=== PATIENT | female | born 1950 | race Caucasian/White ===

== ENCOUNTER 2025-04-12 09:47 | Outpatient (CLI) | payer MEDICARE, OTHER, SELFPAY ==
[2025-04-12 10:25] VITALS: BP 118/87; PULSE 72; RESP 15; TEMP 36.3; O2SAT 95
[2025-04-12 10:40] VITALS: BP 134/87; PULSE 72; RESP 16; O2SAT 96
[2025-04-12] MEDS: LIDOCAINE 1% (PF) 5 ML 10 ML INJ (10:43)
[2025-04-12 10:45] VITALS: BP 137/90; PULSE 71; RESP 16; O2SAT 96
[2025-04-12 10:52] VITALS: BP 127/87; PULSE 88; RESP 17; O2SAT 95
--- NOTE | 2025-04-12 12:38 | PM.PROC.IR.1 ---
Date/Time/Diagnoses Date of procedure: 04/12/25 Time of procedure: 10:30 Pre-procedure diagnosis: Lumbosacral radiculopathy Post-procedure diagnosis: same Procedure Notes Procedure: Interlaminar epidural steroid injection L5-S1 Indications: Lumbosacral radiculopathy Physician: David Jimenez Total sedation minutes: 0 Complications: none Procedure in detail & Post-procedure care: Patient is here for the planned procedure today as noted. No significant change since the last office visit. For additional clinical scenario please see those office notes. Focused exam: Vital signs reviewed as charted on intake. Gen: Well developed. No acute distress. CV: RRR, no M/R/G Chest: Non-labored breathing, CTAB. Psych: Alert and well-oriented. Mood/Affect: normal. Patient suitable for the planned procedure today: Yes === The following procedure was performed in the office today: Lumbar Epidural Steroid Injection with fluoroscopic guidance - Interlaminar approach (98095) Levels Treated: [L5-S1] Approach: interlaminar Soft tissue: [1% lidocaine 2 mL] Test dose: [1% lidocaine 1 mL] Injectate: 0.75 mL of Depo-Medrol (80mg/mL) in 1.25 mL 1% lidocaine and 1 mL normal saline Fluoroscopy Agent: Isovue 300-M 1.5 mL Notes: 3.5 in 20 gauge Touhy needle utilized and adequate. Preprocedure pain 9/10, postprocedure pain 6/10. Procedure: After discussing the risks, benefits, and alternatives to the procedure, the patient expressed understanding and wished to proceed. The risks include but are not limited to infection, allergic reaction, nerve damage, stroke, paralysis, epidural hematoma, syncope, headache, respiratory or cardiac arrest, spinal cord injury, and scar formation. Informed consent was obtained and all patient questions were answered. The patient was brought to the procedure suite and placed in the prone position. A pre-procedural pause was conducted to verify: correct patient identity, procedure to be performed and as applicable, correct side and site, correct patient position, and any special requirements. Using a paramedian approach from the side noted above, the region overlying the target was localized under fluoroscopic visualization and the soft tissues overlying this structure were infiltrated with the anesthetic listed above. With fluoroscopic guidance, a #20 gauge Tuohy needle (unless otherwise noted) was inserted into the epidural space using a paramedian approach. The epidural space was localized utilizing intermittent multiplanar fluoroscopic guidance and loss of resistance technique. After negative aspiration, the contrast noted above was injected into the epidural space and the flow of contrast was observed, confirming epidural spread without evidence of intravascular or intrathecal spread. Multi-planar radiographs were obtained for documentation purposes. A test dose of lidocaine was injected into the above noted epidural space, and the patient was observed for 30-60 seconds. No sensory deficits were reported and normal lower extremity motor function was noted. Subsequently, the injectate as noted above was administered into the level noted above. The patient tolerated the procedure well and was discharged after an appropriate period of observation. If there are any complications, the patient was instructed to call us. The patient is to follow-up with the requesting provider in 2-3 weeks. This note was compiled using voice recognition software and therefore may contain typos. Please contact the author with any questions or concerns.
== END 2025-04-12 10:57 | disposition home or self-care (01) ==
LOC: RAD 09:49
PROVIDERS: PCP Internal Medicine; Referring Provider Internal Medicine; Visit Provider Physical Medicine & Rehabilitation
DX: M54.17 Radiculopathy, lumbosacral region (principal)
CPT/HCPCS: 62323; J1010

== ENCOUNTER → 2025-06-03 13:06 | Outpatient (CLI) | payer MEDICARE, OTHER, SELFPAY ==
--- NOTE | 2025-06-03 13:07 | DI.MRI.S_ITS ---
PROCEDURE: MR LUMBAR SPINE WO CON INDICATIONS: lumbosacral radic LLE TECHNIQUE: Noncontrast sagittal T1 spin echo and T2 fast echo, sagittal STIR, and T2 fast spin echo through the lumbar spine. In cases with scoliosis, additional coronal T2 fast spin echo may be performed. COMPARISON: [facility], MR, MR LUMBAR SPINE WITHOUT CONTRAST, 07/09/2022, 10:40. [facility] [place], CR, XR LUMBAR SPINE 2 OR 3 VIEWS, 07/27/2022, 10:58. FINDINGS: Image quality: Excellent. Alignment and Curvature: 3 mm grade 1 anterolisthesis of L2 on L3. Bone Marrow: Marrow is of normal overall signal. Mild multifocal degenerative endplate changes. No acute vertebral body compression fractures. Spinal Cord: Conus medullaris terminates at the L1 level. Visualized cord demonstrates normal signal and size. Paraspinous Soft Tissues: No paravertebral masses. Grade 2 fatty infiltration of the paraspinous musculature. Bilateral parapelvic renal cysts. T12-L1: Disc desiccation and mild circumferential disc bulging without significant spinal canal stenosis or neural foraminal narrowing. L1-L2: Disc desiccation and loss of disc space height with circumferential disc bulging, mild facet hypertrophy, buckling of the ligamentum flavum. Findings result in mild narrowing of the spinal canal and mild bilateral neural foraminal narrowing. Findings do not appear significantly changed when compared to the MRI from 07/09/2022. L2-L3: Disc desiccation and loss of disc space height with posterior disc- osteophyte complex as well as mild bilateral facet hypertrophy and buckling of the ligamentum flavum. Findings result in [id number] narrowing of the spinal canal with crowding of the lateral recesses as well as moderate bilateral neural foraminal narrowing. Findings appear improved when compared to the MRI from 07/09/2022, primarily due to decreased epidural fat. L3-L4: Disc desiccation and circumferential disc bulging with small left paracentral disc protrusion as well as moderate bilateral facet hypertrophy and buckling of the ligamentum flavum. Findings result in severe narrowing of the spinal canal, effacement of the lateral recesses that is greater on the left than on the right, and [id number] bilateral neural foraminal narrowing. Findings appear progressed when compared to the prior MRI. L4-L5: Disc desiccation and circumferential disc bulging as well as moderate to severe bilateral facet hypertrophy and buckling of the ligamentum flavum. Findings result in moderate to severe narrowing of the spinal canal with effacement of the lateral recesses and moderate bilateral neural foraminal narrowing. Findings have minimally progressed. L5-S1: Disc desiccation and mild circumferential disc bulging as well as mild bilateral facet hypertrophy. Findings result in [id number]-[id number]-smiobclf narrowing of the neural foramina without significant spinal canal stenosis. Findings have not significantly changed. IMPRESSION: 1. At L3-4, progressive degenerative changes result in severe narrowing of the spinal canal, effacement of the lateral recesses, and [id number] bilateral neural foraminal narrowing. 2. At L4-5, degenerative changes result in moderate to severe spinal canal narrowing, effacement of the lateral recesses, and moderate bilateral neural foraminal narrowing. 3. At L2-3, the degree of spinal canal stenosis has improved when compared to the prior MRI from 07/09/2022, predominantly due to decreased epidural fat. 4. Additional multilevel degenerative disc disease and facet hypertrophy as described in the body of the report, overall mildly progressed when compared to the prior MRI. Approved by: Fox Glaser M.D. on 06/04/2025 at 14:59
== END ==
LOC: MRI 13:07
PROVIDERS: PCP Internal Medicine; Referring Provider Internal Medicine; Visit Provider Physical Medicine & Rehabilitation
DX: M47.27 Other spondylosis with radiculopathy, lumbosacral region (principal); M47.26 Other spondylosis with radiculopathy, lumbar region; M51.16 Intervertebral disc disorders with radiculopathy, lumbar region; M51.17 Intervertebral disc disorders with radiculopathy, lumbosacral region; M48.061 Spinal stenosis, lumbar region without neurogenic claudication; M48.07 Spinal stenosis, lumbosacral region; N28.1 Cyst of kidney, acquired
CPT/HCPCS: 72148

== ENCOUNTER → 2025-06-26 09:21 | Outpatient (CLI) | payer MEDICARE, OTHER, SELFPAY ==
--- NOTE | 2025-06-26 09:23 | DI.RAD.S_ITS ---
PROCEDURE: XR HIP W PEL IF DONE LT 2V INDICATIONS: left lateral hip pain TECHNIQUE: AP pelvis with lateral view(s) of the left hip(s). COMPARISON: None. FINDINGS: Bones: No fractures or dislocations. Pelvic ring appears intact. No suspicious bony lesions. Mild degenerative arthrosis of both hips. Mild degenerative arthrosis of bilateral sacroiliac joints. Soft tissues: The visualized bowel gas pattern is normal. No suspicious soft tissue calcifications. IMPRESSION: No acute bony abnormality. Dictated by: Luis Sainz M.D. on 06/26/2025 at 12:29 Approved by: Luis Sainz M.D. on 06/26/2025 at 12:29
== END ==
PROVIDERS: PCP Internal Medicine; Referring Provider Internal Medicine; Visit Provider Physical Medicine & Rehabilitation
DX: M16.0 Bilateral primary osteoarthritis of hip (principal); M25.552 Pain in left hip; M47.818 Spondylosis without myelopathy or radiculopathy, sacral and sacrococcygeal region
CPT/HCPCS: 73502